=== PATIENT | male | born 1950 | race Caucasian/White ===

== ENCOUNTER → 2019-05-21 | Outpatient (CLI) | payer OTHER ==
[2019-05-21 13:46] LABS: African American GFR (CKD) >90 (>60 ml/min/1.73 sqM); Blood Urea Nitrogen 8 mg/dL (9-20)
--- NOTE | 2019-05-21 14:28 | CT ---
EXAMINATION TYPE: CT angio abdomen pelvis DATE OF EXAM: 05/21/2019 COMPARISON: None HISTORY: AAA CT DLP: 271.9 mGycm CONTRAST: CTA abdominal aorta with 3-D reconstruction is performed without Oral Contrast and with IV Contrast, patient injected with 100 mL of Isovue 370. Contrast CTA of the abdominal aorta was performed from the lung base through the base of the pelvis. 3-D reconstruction imaging obtained at a separate workstation. CONTRAST CT ABDOMEN AND PELVIS ABDOMINAL AORTA: Infrarenal aortic aneurysm measuring up to 4.5 cm AP dimension. Mild mural thrombus. Neck measures 3.3 cm in length. No dissection. Iliac vessels are symmetric and patent. The lung bases: Small bilateral pleural effusions. Basilar parenchymal scarring and emphysematous change. LIVER/GB- No significant abnormality is seen. PANCREAS- No significant abnormality is seen. SPLEEN- No significant abnormality is seen. ADRENALS- No significant abnormality is seen. KIDNEYS/BLADDER- No significant abnormality is seen. BOWEL- No Significant abnormality GENITAL ORGANS: No gross abnormality seen. LYMPH NODES- No greater than 1cm abdominal or pelvic lymph nodes are appreciated. OSSEOUS STRUCTURES- No significant abnormality is seen. OTHER- No significant abnormality is seen. IMPRESSION- 1. Infrarenal abdominal aortic aneurysm.
== END | disposition home or self-care (01) ==
LOC: RADCTMAIN 13:07
DX: I71.4 Abdominal aortic aneurysm, without rupture (principal)
CPT/HCPCS: 82565; 84520; 36415; 74174; Q9967

== ENCOUNTER → 2020-05-02 | Outpatient (CLI) | payer OTHER ==
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
== END | disposition home or self-care (01) ==
LOC: SLEEP 14:40
PROVIDERS: ATTEND Internal Medicine Critical Care Medicine
DX: G47.10 Hypersomnia, unspecified (principal); H91.90 Unspecified hearing loss, unspecified ear; J44.9 Chronic obstructive pulmonary disease, unspecified; N40.0 Benign prostatic hyperplasia without lower urinary tract symptoms; C44.90 Unspecified malignant neoplasm of skin, unspecified; G62.9 Polyneuropathy, unspecified; Z98.890 Other specified postprocedural states; F17.210 Nicotine dependence, cigarettes, uncomplicated; Z79.899 Other long term (current) drug therapy; Z79.891 Long term (current) use of opiate analgesic
CPT/HCPCS: 99211

== ENCOUNTER → 2021-04-03 | Outpatient (CLI) | payer OTHER ==
--- NOTE | 2021-04-03 14:19 | CT ---
EXAMINATION TYPE: CT brain wo con DATE OF EXAM: 04/03/2021 COMPARISON: None HISTORY: Headaches CT DLP: 1081.60 mGycm Automated exposure control for dose reduction was used. FINDINGS: Ventricular system is midline. There is no evidence of mass effect or midline shift. Intraorbital str uctures are symmetric. Cerebellar tonsils low-lying at the level of foramen magnum. Partially empty s bruno turcica. IMPRESSION: NO EVIDENCE OF ACUTE HEMORRHAGE OR MASS EFFECT. IF SYMPTOMS PERSIST CONSIDER MRI.
--- NOTE | 2021-04-03 14:19 | CT ---
EXAMINATION TYPE: CT chest wo con DATE OF EXAM: 04/03/2021 COMPARISON: None HISTORY: 71-year-old male COPD TECHNIQUE: Contiguous axial scanning of the chest without IV contrast. Coronal and sagittal reconstru ctions performed. CT DLP: 317.50 mGycm Automated exposure control for dose reduction was used. FINDINGS: Heart normal size with small pericardial effusion near the apex of the heart measuring up to 8 mm. LA D and RCA coronary artery calcifications. Mitral annular calcifications also noted. Mild to moderate atherosclerotic arch and descending thoracic aortic calcifications. Bovine configura tion to the aortic arch. Borderline to mildly enlarged caliber to the main right and left pulmonary arteries measuring up to 2 .6 cm suggesting underlying pulmonary artery hypertension. Calcified right hilar lymph nodes compatible with prior granulomatous disease. No thoracic lymphadeno mikki by CT size criteria. Moderate to advanced centrilobular. Right apical pleural-parenchymal scarring. Some irregular nodular areas are present here measuring up to 7 mm, axial image 11 and can be reassessed at follow-up. A fe w calcified granulomas are present on the right, axial image 19 and 49. Irregular opacity at the basilar right lower lobe extends to the basilar and posterior pleural surfac e and shows a trace right effusion, referred to axial image 57 and 58. The architecture is distorted here. Focal subpleural masslike density within the inferior lingula measuring 2.6 cm. Mild smooth pleural b ased thickening periphery of the basilar left lower lobe measuring up to 9 mm, axial image 48. Otherwise, no consolidation or pleural effusion. Partially visualized infrarenal AAA measuring at least 4.1 cm. Atrophic pancreas. Bones: [facility] within the mid and lower thoracic spine. Degenerative changes at the sternoclavicular amilcar nts. Moderate to advanced degenerative disc disease L2-L3 with grade 1 retrolisthesis. IMPRESSION: 1. 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 2. BIBASILAR PLEURAL PARENCHYMAL SCARRING. MORE IRREGULAR PATCHY CHANGES AT THE BASILAR RIGHT LOWER L OBE EXTENDING TO THE BASILAR AND POSTERIOR PLEURAL SURFACES ALONG WITH A TRACE RIGHT EFFUSION. [address] FOLLOW-UP CT RECOMMENDED TO REASSESS. 3. THREE-MONTH FOLLOW-UP CT ALSO RECOMMENDED TO REASSESS A SUBPLEURAL MASSLIKE AREA WITHIN THE INFERI OR LINGULA AND SOME ADJACENT SMOOTH PLEURAL THICKENING IN THE PERIPHERY OF THE LEFT BASE. THESE AREAS MEASURE UP TO 2.6 CM AND 9 MM, RESPECTIVELY. 7 MM IRREGULAR NODULARITY AT THE RIGHT APEX, PROBABLE P LEURAL-PARENCHYMAL SCARRING, SHOULD ALSO BE REASSESSED AT THAT TIME. 4. CAD WITH LAD AND RCA CORONARY ARTERY CALCIFICATIONS. 5. PARTIALLY VISUALIZED AAA. WE NOTE THAT THIS MEASURED UP TO 4.7 CM ON THE PRIOR 05/21/2019 CT. APPRO SANDRITAATE VASCULAR FOLLOW-UP RECOMMENDED.
== END | disposition home or self-care (01) ==
LOC: RADCTMAIN 12:37
PROVIDERS: ATTEND Physician Assistant
DX: J43.9 Emphysema, unspecified (principal); I27.21 Secondary pulmonary arterial hypertension; I25.10 Atherosclerotic heart disease of native coronary artery without angina pectoris; J98.4 Other disorders of lung; J92.9 Pleural plaque without asbestos; R51.9 Headache, unspecified
CPT/HCPCS: 70450; 71250

== ENCOUNTER → 2022-06-07 | Outpatient (CLI) | payer OTHER ==
[2022-06-07 14:26] LABS: African American GFR (CKD) >90 (>60 ml/min/1.73 sqM); Blood Urea Nitrogen 13 mg/dL (9-20); Non-African American GFR(CKD) 89 (>60 ml/min/1.73 sqM)
--- NOTE | 2022-06-07 19:06 | CT ---
EXAMINATION TYPE: CT angio abdomen pelvis DATE OF EXAM: 06/07/2022 COMPARISON: 05/21/2019 HISTORY: AAA CT DLP: 1864 mGycm Automated exposure control for dose reduction was used. Contrast: 03/21/2019 Technique: Axial images 5 mm thick sections. Reconstructed images in the coronal and sagittal plane. Three-D reconstructed images performed on a separate computer by the technologists are presented for interpretation. FINDINGS: Limited CT sections are obtained through the lung bases. There is a 1.2 cm nodule in the posterior ri ght lung base. Infiltrate appears to be in the posterior inferior right lung base. Vascular calcifications within the aorta. Celiac axis and superior mesenteric artery takeoffs are nor mal. The renal artery takeoffs have vascular calcification. Stenosis is not identified. There is new per renal abdominal aorta aneurysm. Greatest AP diameter is 5.4 cm. This terminates the bifurcation. Common iliac arteries internal and external iliac arteries are patent. Common femoral ar teries are patent. Vascular calcification is noted. Profunda femoris and superficial femoral arteries within the field of view are normal. Urinary bladder is normal. Prostate is normal. Fecal debris is in the colon. The appendix is not iden tified. No dilated tubular structure or inflammatory changes evident. Gallbladder is unremarkable. Li constance and spleen are normal density without discrete masses or cysts. Pancreas is atrophic. Adrenal gla nds are normal. IMPRESSION: 1. ABDOMINAL AORTIC ANEURYSM BELOW THE RENAL ARTERIES TERMINATING AT THE BIFURCATION WITH AN AP DIAME TER OF 5.4 CM.. THIS IS INCREASED IN SIZE FROM 4.5 CM 2019.
== END | disposition home or self-care (01) ==
LOC: RADCTMAIN 13:52
PROVIDERS: ATTEND Surgery
DX: I71.4 Abdominal aortic aneurysm, without rupture (principal)
CPT/HCPCS: 82565; 84520; 36415; 74174; Q9967

== ENCOUNTER 2022-09-02 09:18 | Emergency (ER) | payer OTHER ==
[2022-09-02 09:28] VITALS: TEMP 97
[2022-09-02] MEDS ORDERED: SODIUM CHLORIDE 0.9% 500 ML 500 ML IV STA (09:40)
--- NOTE | 2022-09-02 09:45 | ED ---
Nausea/Vomiting/Diarrhea HPI - General Chief complaint: Nausea/Vomiting/Diarrhea Stated complaint: Diarrhea Time Seen by Provider: 09/02/22 09:29 Source: patient, RN notes reviewed, old records reviewed Mode of arrival: ambulatory Limitations: no limitations - History of Present Illness Initial comments: 72-year-old male presents ambulatory, alert and oriented 4, with complaints of diarrhea for 16 days. States he is down to 3 episodes a day, watery in nature. Denies any bleeding. States he did take 4 Imodium today. He was diagnosed with coronavirus and influenza at [facility] 2 weeks ago and just finished Keflex. He also has a history of colitis and states he is not sure if this is his colitis acting up. Denies any vomiting or fevers. No chest pain or difficulty in breathing. Patient does have a history of CHF, COPD and abdominal aortic aneurysm. He is scheduled to see Dr. Briggs on September 04 for reevaluation of aneurysm. MD complaint: diarrhea, abdominal pain -: days(s) (16) Description of Diarrhea: water Associated Abdominal Pain: Yes Location: diffuse Radiation: none Severity: mild Severity scale (1-10): 3 Quality: cramping Consistency: intermittent Context: recent antibiotic use (keflex) Associated Symptoms: denies other symptoms - Related Data Allergies Allergy/AdvReac Type Severity Reaction Status Date / Time milk Allergy Nausea & Verified 09/02/22 09:25 Vomiting & Diarrhea Review of Systems ROS Statement: Those systems with pertinent positive or pertinent negative responses have been documented in the HPI. ROS Other: All systems not noted in ROS Statement are negative. Past Medical History Past Medical History: Heart Failure History of Any Multi-Drug Resistant Organisms: None Reported Past Surgical History: Orthopedic Surgery Additional Past Surgical History / Comment(s): Spinal surgery Past Psychological History: No Psychological Hx Reported Smoking Status: Former smoker Past Alcohol Use History: Occasional Past Drug Use History: None Reported General Exam Limitations: no limitations General appearance: alert, in no apparent distress Head exam: Present: atraumatic Eye exam: Absent: scleral icterus, conjunctival injection, periorbital swelling ENT exam: Present: other (Bilateral hearing aids) Neck exam: Absent: meningismus Respiratory exam: Absent: respiratory distress, accessory muscle use Cardiovascular Exam: Present: regular rate GI/Abdominal exam: Present: soft. Absent: distended, tenderness, guarding, rigid Neurological exam: Present: alert, oriented X3, normal gait Psychiatric exam: Present: normal affect, normal mood Skin exam: Present: warm, dry. Absent: cyanosis, diaphoretic Course Vital Signs 09/02/22 09/02/22 09/02/22 09:25 12:27 13:47 Temperature 97 F L Pulse Rate 84 82 81 Respiratory 16 16 18 Rate Blood Pressure 123/81 124/81 122/84 O2 Sat by Pulse 97 96 96 Oximetry Medical Decision Making - Medical Decision Making Patient presents with diarrhea for 16 days. States he is down to 3 episodes a day, watery in nature. Denies any bleeding. He had was diagnosed with coronavirus and influenza 2 weeks ago and just finished Keflex. He also has a history of colitis. Patient has had no diarrhea in the emergency room. Abdomen is soft and nontender. Patient is afebrile, no vomiting or abdominal pain. No evidence of leukocytosis. Electrolytes are unremarkable. Urine is clear. He is tolerating oral fluids in the emergency room. He was given IV fluids for hydration. Vital signs are stable. He was directed to follow up with his primary care doctor for continuation of care. Return to the emergency room with any new or concerning symptoms. He is agreeable to this plan of care. Case discussed with Dr. Cruz. - Lab Data Result diagrams: 09/02/22 09:55 09/02/22 09:55 Lab Results 09/02/22 09/02/22 09/02/22 Range/Units 09:55 09:55 09:56 WBC 6.3 (3.8-10.6) k/uL RBC 3.49 L (4.30-5.90) m/uL Hgb 12.2 L (13.0-17.5) gm/dL Hct 35.3 L (39.0-53.0) % MCV 101.0 H (80.0-100.0) fL MCH 34.8 (25.0-35.0) pg MCHC 34.5 (31.0-37.0) g/dL RDW 12.9 (11.5-15.5) % Plt Count 395 (150-450) k/uL MPV 7.3 Neutrophils % 62 % Lymphocytes % 24 % Monocytes % 7 % Eosinophils % 2 % Basophils % 1 % Neutrophils # 3.9 (1.3-7.7) k/uL Lymphocytes # 1.6 (1.0-4.8) k/uL Monocytes # 0.5 (0-1.0) k/uL Eosinophils # 0.1 (0-0.7) k/uL Basophils # 0.0 (0-0.2) k/uL Sodium 131 L (137-145) mmol/L Potassium 4.9 (3.5-5.1) mmol/L Chloride 99 (98-107) mmol/L Carbon Dioxide 28 (22-30) mmol/L Anion Gap 4 mmol/L BUN 10 (9-20) mg/dL Creatinine 0.65 L (0.66-1.25) mg/dL Est GFR (CKD-EPI)AfAm >90 (>60 ml/min/1.73 sqM) Est GFR (CKD-EPI)NonAf >90 (>60 ml/min/1.73 sqM) Glucose 98 (74-99) mg/dL Calcium 8.5 (8.4-10.2) mg/dL Total Bilirubin 0.8 (0.2-1.3) mg/dL AST 34 (17-59) U/L ALT 18 (4-49) U/L Alkaline Phosphatase 117 (38-126) U/L Total Protein 6.1 L (6.3-8.2) g/dL Albumin 3.5 (3.5-5.0) g/dL Amylase 37 (30-110) U/L Lipase <10 L (23-300) U/L Urine Color Light Yellow Urine Appearance Clear (Clear) Urine pH 6.0 (5.0-8.0) Ur Specific [place] 1.007 (1.001-1.035) Urine Protein Negative (Negative) Urine Glucose (UA) Negative (Negative) Urine Ketones Negative (Negative) Urine Blood Negative (Negative) Urine Nitrite Negative (Negative) Urine Bilirubin Negative (Negative) Urine Urobilinogen <2.0 (<2.0) mg/dL Ur Leukocyte Esterase Negative (Negative) Disposition Clinical Impression: Diarrhea Disposition: HOME SELF-CARE Condition: Good Instructions (If sedation given, give patient instructions): Acute Diarrhea (ED) Additional Instructions: Follow-up with your primary care doctor this week. Return to the emergency room with any new or concerning symptoms including persistent nausea vomiting, fevers, weakness, or dizziness. Is patient prescribed a controlled substance at d/c from ED?: No Referrals: [facility],Clinic [Primary Care Provider] - 1-2 days Time of Disposition: 12:18
[2022-09-02 10:13] LABS: Basophils % (A) 1 %; Eosinophils # (A) 0.1 k/uL (0-0.7); Eosinophils % (A) 2 %; HCT 35.3 % (39.0-53.0); HGB 12.2 gm/dL (13.0-17.5); Lymphocytes # (A) 1.6 k/uL (1.0-4.8); Lymphocytes % (A) 24 %; MCH 34.8 pg (25.0-35.0); MCHC 34.5 g/dL (31.0-37.0); Mean Platelet Volume 7.3; Monocytes # (A) 0.5 k/uL (0-1.0); Monocytes % (A) 7 %; Neutrophils # (A) 3.9 k/uL (1.3-7.7); Neutrophils % (A) 62 %; Platelet Count 395 k/uL (150-450); RBC 3.49 m/uL (4.30-5.90); RDW 12.9 % (11.5-15.5); WBC 6.3 k/uL (3.8-10.6)
[2022-09-02 10:21] LABS: Appearance,Urine Clear (Clear); Bilirubin,Urine Negative (Negative); Blood,Urine Negative (Negative); Color,Urine Light Yellow; Glucose,Urine (UA) Negative (Negative); Ketones,Urine Negative (Negative); Leukocyte Esterase,Urine Negative (Negative); Nitrite,Urine Negative (Negative); Protein,Urine Negative (Negative); Specific Gravity,Urine 1.007 (1.001-1.035); Urobilinogen,Urine <2.0 mg/dL (<2.0)
[2022-09-02 10:25] LABS: ALT 18 U/L (4-49); African American GFR (CKD) >90 (>60 ml/min/1.73 sqM); Amylase 37 U/L (30-110); Anion Gap 4 mmol/L; Blood Urea Nitrogen 10 mg/dL (9-20); Calcium 8.5 mg/dL (8.4-10.2); Carbon Dioxide 28 mmol/L (22-30); Chloride 99 mmol/L (98-107); Glucose 98 mg/dL (74-99); Lipase <10 U/L (23-300); Non-African American GFR(CKD) >90 (>60 ml/min/1.73 sqM); Sodium 131 mmol/L (137-145); Total Bilirubin 0.8 mg/dL (0.2-1.3)
[2022-09-02 10:27] LABS: AST 34 U/L (17-59); Albumin 3.5 g/dL (3.5-5.0); Alkaline Phosphatase 117 U/L (38-126); Potassium 4.9 mmol/L (3.5-5.1); Total Protein 6.1 g/dL (6.3-8.2)
[2022-09-02 13:49] VITALS: BP 122/84; PULSE 81; RESP 18
== END 2022-09-02 13:48 | disposition home or self-care (01) ==
LOC: EC 09:18
DX: I50.9 Heart failure, unspecified (principal); Z87.891 Personal history of nicotine dependence; Z91.011 Allergy to milk products
CPT/HCPCS: 36415; 80053; 81003; 82150; 83690; 85025; 96360; 96361; 99284

== ENCOUNTER → 2022-09-24 | Outpatient (CLI) | payer OTHER | END | disposition home or self-care (01) | LOC: LABWHC1 11:56 | PROVIDERS: ATTEND Internal Medicine Interventional Cardiology | DX: R79.89 Other specified abnormal findings of blood chemistry (principal) | CPT/HCPCS: 36415; 83880 ==

== ENCOUNTER 2022-11-01 06:45 | Inpatient (IN) | payer OTHER ==
[2022-10-30 13:05] VITALS: BMI 21.4
[~2022-11-01 06:45] MED LIST: ALPRAZolam 0.25 MG TAB PO PRN; ALPRAZolam 0.5 MG TAB PO PRN; SODIUM CHLORIDE 0.9% 1,000 ML in EMPTY BAG 1 BAG IV ONE; ZOLPIDEM 5 MG TAB PO PRN; ceFAZolin 1 GM in SODIUM CHLORIDE 0.9% 250 ML IRRIGATION PRN
[2022-11-01] MEDS ORDERED: SODIUM CHLORIDE 0.9% 1,000 ML IV ONE ×2 (07:07→11:45)
[2022-11-01 07:50] LABS: Basophils # (A) 0.1 k/uL (0-0.2); Basophils % (A) 1 %; Eosinophils # (A) 0.1 k/uL (0-0.7); Eosinophils % (A) 1 %; Lymphocytes # (A) 2.2 k/uL (1.0-4.8); Lymphocytes % (A) 30 %; MCH 33.9 pg (25.0-35.0); MCHC 34.1 g/dL (31.0-37.0); MCV 99.6 fL (80.0-100.0); Mean Platelet Volume 7.4; Monocytes # (A) 0.4 k/uL (0-1.0); Monocytes % (A) 6 %; Neutrophils # (A) 4.5 k/uL (1.3-7.7); Neutrophils % (A) 60 %; Platelet Count 221 k/uL (150-450); RBC 3.82 m/uL (4.30-5.90); WBC 7.5 k/uL (3.8-10.6)
[2022-11-01 08:02] LABS: African American GFR (CKD) >90 (>60 ml/min/1.73 sqM); Anion Gap 6 mmol/L; Blood Urea Nitrogen 15 mg/dL (9-20); Calcium 8.9 mg/dL (8.4-10.2); Carbon Dioxide 32 mmol/L (22-30); Chloride 96 mmol/L (98-107); Glucose 103 mg/dL (74-99); Non-African American GFR(CKD) 89 (>60 ml/min/1.73 sqM); Sodium 134 mmol/L (137-145)
[2022-11-01 08:03] LABS: Potassium 3.4 mmol/L (3.5-5.1)
--- NOTE | 2022-11-01 08:50 | P.HPIHPCON ---
History of Present Illness H&P Date: 11/01/22 Patient seen and examined. He is here today for surgical intervention regarding his abdominal aortic aneurysm. He has had proper clearances regarding his pulmonary status which was the reason why his previous aneurysm repair had been canceled. He is doing well without any questions Consent for Procedure: I have explained the operation/procedure to the patient, including the risks, benefits, side effects, alternative therapies (including not receiving the pr oposed treatment or service), the likelihood of the patient achieving his/her goals, and potential recuperation problems for the procedure/sedation/analgesia, as well as any blood products, if indicated. I also explained to the patient the risks, benefits and side effects of the alternatives, as well as the risks related to not receiving the proposed procedure, care, treatment, or services. Past Medical History Past Medical History: Cancer, COPD, Hyperlipidemia, Hypertension, Sleep Apnea/CPAP/BIPAP Additional Past Medical History / Comment(s): sleep apnea-no machine, skin cancer., hx covid 07/2022 with pneumonia & hospitalization., chronic back pain., AAA. 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 - Past Family History Mother Family Medical History: No Reported History Medications and Allergies Home Medications Medication Instructions Recorded Confirmed Type Albuterol Inhaler [Ventolin Hfa 1 - 2 puff INHALATION Q6H PRN 10/30/22 11/01/22 History Inhaler] Calcium Carbonate [Calcium] 1,200 mg PO DAILY 10/30/22 11/01/22 History Ensure 1 can PO TID-W/MEALS 10/30/22 11/01/22 History Fluticasone Propion/Salmeterol 1 inhalation PO BID 10/30/22 11/01/22 History [Wixela 250-50 Inhub] Hydrocodone/Acetaminophen 1 tab PO Q4HR PRN 10/30/22 11/01/22 History [Hydrocodone/Acetaminophen 10-325] Lactobacillus Acidophilus 2 each PO PC-SUPPER 10/30/22 11/01/22 History [Acidophilus Probiotic] Mesalamine 1.2 gm PO DAILY 10/30/22 11/01/22 History Metoprolol Tartrate [Lopressor] 25 mg PO BID 10/30/22 11/01/22 History Oxybutynin Chloride 5 mg PO BID 10/30/22 11/01/22 History Pregabalin [Lyrica] 50 mg PO BID 10/30/22 11/01/22 History Terazosin HCl [Hytrin] 10 mg PO HS 10/30/22 11/01/22 History Tiotropium 2.5 Mcg/Puff [Spiriva 2 puff INHALATION DAILY 10/30/22 11/01/22 History Respimat 2.5 Mcg] Zinc Gluconate [Zinc] 50 mg PO DAILY 10/30/22 11/01/22 History Allergies Allergy/AdvReac Type Severity Reaction Status Date / Time gabapentin Allergy Unknown Unknown Verified 11/01/22 07:12 lactose Allergy Unknown Nausea & Verified 11/01/22 07:12 Vomiting & Diarrhea milk Allergy Nausea & Verified 11/01/22 07:12 Vomiting & Diarrhea morphine AdvReac Hx of Verified 11/01/22 07:12 addiction Surgical - Exam Vital Signs Temp Pulse Resp BP Pulse Ox 98.2 F 72 16 156/78 96 11/01/22 07:21 11/01/22 07:21 11/01/22 07:21 11/01/22 07:21 11/01/22 07:21 Gen. is a pleasant cooperative male in no acute distress. Heart appears regular at this time. Lungs are clear but diminished. Abdomen soft. He has palpable femoral popliteal dorsalis pedis pulses bilaterally. Motor sensory intact. Cranial nerves II through XII grossly intact. Results Computed tomography scan again reviewed. 5.4 cm infrarenal abdominal aortic aneurysm - Labs 11/01/22 07:05 11/01/22 07:05 Abnormal Lab Results - Last 24 Hours (Table) 11/01/22 11/01/22 Range/Units 07:05 07:05 RBC 3.82 L (4.30-5.90) m/uL Hct 38.0 L (39.0-53.0) % Sodium 134 L (137-145) mmol/L Potassium 3.4 L (3.5-5.1) mmol/L Chloride 96 L (98-107) mmol/L Carbon Dioxide 32 H (22-30) mmol/L Glucose 103 H (74-99) mg/dL Diabetes panel 11/01/22 Range/Units 07:05 Sodium 134 L (137-145) mmol/L Potassium 3.4 L (3.5-5.1) mmol/L Chloride 96 L (98-107) mmol/L Carbon Dioxide 32 H (22-30) mmol/L BUN 15 (9-20) mg/dL Creatinine 0.78 (0.66-1.25) mg/dL Glucose 103 H (74-99) mg/dL Calcium 8.9 (8.4-10.2) mg/dL Calcium panel 11/01/22 Range/Units 07:05 Calcium 8.9 (8.4-10.2) mg/dL Pituitary panel 11/01/22 Range/Units 07:05 Sodium 134 L (137-145) mmol/L Potassium 3.4 L (3.5-5.1) mmol/L Chloride 96 L (98-107) mmol/L Carbon Dioxide 32 H (22-30) mmol/L BUN 15 (9-20) mg/dL Creatinine 0.78 (0.66-1.25) mg/dL Glucose 103 H (74-99) mg/dL Calcium 8.9 (8.4-10.2) mg/dL Adrenal panel 11/01/22 Range/Units 07:05 Sodium 134 L (137-145) mmol/L Potassium 3.4 L (3.5-5.1) mmol/L Chloride 96 L (98-107) mmol/L Carbon Dioxide 32 H (22-30) mmol/L BUN 15 (9-20) mg/dL Creatinine 0.78 (0.66-1.25) mg/dL Glucose 103 H (74-99) mg/dL Calcium 8.9 (8.4-10.2) mg/dL Assessment and Plan Assessment: Infrarenal abdominal aortic aneurysm COPD Tobacco abuse Hypertension Plan: Plan for abdominal aortic aneurysm repair via endovascular approach. Risks and benefits were discussed. He seemingly understood and was willing to proceed. Questions are answered.
[2022-11-01] MEDS ORDERED: PHENYLEPHRINE-0.9% NACL SYG 1,000 MCG/10 ML SYRINGE ONE (09:09)
[2022-11-01] MEDS ORDERED: NEOSTIGMINE 1 MG/ML 10 ML VIAL ONE (09:09)
[2022-11-01] MEDS ORDERED: LIDOCAINE 2% INJ 20 MG/ML (2 ML VIAL) ONE (09:09)
[2022-11-01] MEDS ORDERED: SUCCINYLCHOLINE CHLORIDE 200 MG/10 ML VIAL IV ONE (09:09)
[2022-11-01] MEDS ORDERED: GLYCOPYRROLATE 0.2 MG/ML 2 ML VIAL ONE (09:09)
[2022-11-01] MEDS ORDERED: fentaNYL (PF) 50 MCG/ML 2 ML AMP ONE (09:09)
[2022-11-01] MEDS ORDERED: NITROGLYCERIN-D5W PMX 50 MG/250 ML BOTTLE IV ONE (09:09)
[2022-11-01] MEDS ORDERED: PROPOFOL 10 MG/ML 20 ML VIAL IV ONE (09:09)
[2022-11-01] MEDS ORDERED: HYDROmorphone (PF) 1 MG/ML ONE (09:09)
[2022-11-01] MEDS ORDERED: MIDAZOLAM 2 MG/2 ML VIAL ONE (09:09)
[2022-11-01] MEDS ORDERED: PROTAMINE SULFATE 10 MG/ML 5 ML VIAL IV ONE (09:09)
[2022-11-01] MEDS ORDERED: HEPARIN SODIUM,PORCINE 10,000 UNIT/ML 1 ML VIAL ONE (09:09)
[2022-11-01] MEDS ORDERED: DEXAMETHASONE SOD PHOSPHATE 10 MG/ML 1 ML VIAL ONE (09:09)
[2022-11-01] MEDS ORDERED: ONDANSETRON 4 MG/2 ML VIAL ONE (09:09)
[2022-11-01] MEDS ORDERED: ROCURONIUM 10 MG/ML (5 ML VIAL) IV ONE (09:09)
[2022-11-01] MEDS ORDERED: IOPAMIDOL-250 100ML BTL INTRAARTER ONE (11:41)
--- NOTE | 2022-11-01 12:16 | P.OP ---
Date of Procedure: 11/01/22 Description of Procedure: Preoperative diagnosis: Asymptomatic Infrarenal 5.4 cm abdominal aortic aneurysm Postoperative diagnosis: Same Procedure: 1. Ultrasound-guided bilateral common femoral artery access 2. Percutaneous Endovascular aortic repair with [place] device. Surgeon: Anton Briggs DO Anesthesia: General Estimated blood loss: 40 mL Complications: None Condition: Stable Disposition: Extubated in OR, stable to recovery Fluoro Time: 21.9 minutes Contrast: 130cc Indications: The patient is a 72-year-old male with history of infrarenal AAA measuring 5.4 cm presents to the [facility] for endovascular aortic repair. Operative narrative: After written and informed consent was obtained from the patient all risks benefits and complications were described the patient was brought to the [facility] and laid in a supine position. The area of the groins were prepped and draped in usual sterile fashion after appropriate anesthetic was performed per the anesthesiologist. A timeout was performed in normal fashion and antibiotics were administered prior to incisions. Utilizing ultrasound bilateral common femoral arteries were visualized demonstrating patency with minimal calcification. Under ultrasound guidance utilizing a multipurpose needle bilateral common femoral arteries were accessed and guidewire was placed followed by deployment of 2 Perclose closure devices for each femoral artery. On the right, there were multiple device feel years however to Perclose devices were appropriately placed. Utilizing Seldinger technique and 8-Fijian sheath was then placed and patient was administered heparin and followed with ACTs. 035 Glidewire was then placed up the right femoral sheath and exchanged for a Lunderquist wire through an angled glide catheter. The left femoral artery was then utilized and guidewire was placed followed by pigtail catheter and aortogram was obtained. Utilizing the Lunderquist wire a 26 x 80 mm main body device was then loaded over the guidewire after the 8-Fijian sheath was removed. Delivery system was then placed 1 cm proximal to the intended landing site and the aortic body was oriented for appropriate access for the contralateral limb. Delivery system was then retracted out of the sheath and the aortic body radiopaque markers were verified to be in the correct position. First segment of the graft was then deployed in normal fashion by releasing and pulling the knob in normal fashion. Balloon injection port was then inflated utilizing a 4-1 saline contrast mixture in order to open the mid crown. Balloon was then deflated. Precise positioning was then performed with utilizing the radiopaque markers and parallax was removed and our to land at the renal arteries. Pigtail catheter was then retracted away from the proximal stent and the proximal stent was released in normal fashion. Polymer was then utilized and filled through the polymer port which was visualized under fluoroscopy. The stiff Lunderquist wire was then retracted within the ipsilateral limb. Attention was then placed to accessing the contralateral limb. Utilizing the Glidewire and angled glide catheter the contralateral limb was accessed and pigtail catheter was placed. Pigtail catheter was then spun to verify intragraft cannulation. A stiff wire was then placed within the pigtail catheter and retrograde angiogram was obtained demonstrating the internal iliac artery takeoff. Measurements were obtained and a 16 x 1 60 mm Ovation limb was chosen to be deployed and deployed in normal fashion. Once completed the aortic main body was completely deployed in normal fashion. Utilizing the balloon balloon angioplasty was performed at the ring to further mold the polymer to the aortic neck. Once completed the aortic body deployment sheath was removed in normal fashion. Pigtail catheter was then placed over the Lunderquist wire and retrograde angiogram was obtained with measurements to the internal iliac artery on the ipsilateral limb. A 14 x 1 60mm Ovation limb was chosen and deployed in normal fashion. Once completed two 12 x 40mm balloons were placed up each iliac limb and balloon angioplasty was performed through its entirety. Once completed balloons were removed and pigtail catheter was placed above the graft and final angiogram was obtained demonstrating exclusion of the aneurysm with no evidence of endoleak's. All guidewires and catheters were then removed and the Perclose closure devices were closed in normal fashion. There was some oozing from the left femoral so attempts were initially made to place an Angio-Seal. A 6-Fijian sheath was placed for sizing and in doing so removing the sheath, the wire access was lost therefore manual pressure was held until hemostasis was adequate. The areas were then cleansed and dressings were placed. The patient tolerated procedure well and had palpable DP pulses and was sent to PACU for recovery.
[2022-11-01] MEDS ORDERED: NALOXONE 0.4 MG/ML 10 ML VIAL IVP PRN (12:17)
[2022-11-01] MEDS ORDERED: NITROGLYCERIN-D5W PMX 50 MG in DEXTROSE/WATER 1 250ML.BAG IV ONE (12:20)
--- NOTE | 2022-11-01 12:42 | IR ---
EXAMINATION TYPE: IR stent intravas non coronary DATE OF EXAM: 11/01/2022 COMPARISON: NONE HISTORY: Fluoroscopy time. Fluoroscopy was provided to the referring clinician.
[2022-11-01] MEDS ORDERED: MEPERIDINE 50 MG/ML SYRINGE IVP ONE ×2 (12:57→13:57)
[2022-11-01] MEDS ORDERED: CYCLOBENZAPRINE 5 MG TAB PO STA (12:57)
[2022-11-01] MEDS ORDERED: HYDROmorphone 0.5 MG/0.5 ML SYRINGE IVP ONE ×2 (14:00→15:37)
[2022-11-01 14:08] LABS: Basophils % (A) 0 %; Eosinophils % (A) 0 %; HCT 33.8 % (39.0-53.0); HGB 11.4 gm/dL (13.0-17.5); Lymphocytes # (A) 0.7 k/uL (1.0-4.8); Lymphocytes % (A) 9 %; MCH 33.8 pg (25.0-35.0); MCHC 33.8 g/dL (31.0-37.0); MCV 99.9 fL (80.0-100.0); Mean Platelet Volume 7.8; Monocytes # (A) 0.2 k/uL (0-1.0); Monocytes % (A) 2 %; Neutrophils # (A) 6.9 k/uL (1.3-7.7); Neutrophils % (A) 88 %; Platelet Count 211 k/uL (150-450); RBC 3.38 m/uL (4.30-5.90); RDW 13.5 % (11.5-15.5); WBC 7.8 k/uL (3.8-10.6)
[2022-11-01 14:24] LABS: African American GFR (CKD) >90 (>60 ml/min/1.73 sqM); Anion Gap 4 mmol/L; Blood Urea Nitrogen 13 mg/dL (9-20); Carbon Dioxide 26 mmol/L (22-30); Chloride 103 mmol/L (98-107); Glucose 124 mg/dL (74-99); Non-African American GFR(CKD) >90 (>60 ml/min/1.73 sqM); Potassium 3.8 mmol/L (3.5-5.1); Sodium 133 mmol/L (137-145)
[2022-11-01] MEDS ORDERED: HYDROcodone/APAP 10-325MG 1 EACH TAB PO PRN (20:17)
[2022-11-01] MEDS: OXYBUTYNIN CHLORIDE 5 MG TAB PO SCH (20:59)
[2022-11-01] MEDS: PREGABALIN 50 MG CAP PO SCH (20:59)
[2022-11-01] MEDS: METOPROLOL TARTRATE 25 MG TAB PO SCH (20:59)
[2022-11-01] MEDS ORDERED: DOXAZOSIN 4 MG TAB PO SCH (21:00)
[2022-11-02] MEDS ORDERED: TIOTROPIUM 2.5 MCG INHALER INHALATION SCH (08:00)
[2022-11-02] MEDS ORDERED: SYMBICORT 80-4.5 MCG INHALER INHALATION SCH (08:00)
[2022-11-02] MEDS ORDERED: CALCIUM CARBONATE 500 MG CHEWABLE PO SCH (09:00)
[2022-11-02] MEDS ORDERED: ZINC SULFATE 220 MG CAP PO SCH (09:00)
[2022-11-02] MEDS ORDERED: BALSALAZIDE DISODIUM 750 MG CAPSULE PO SCH (09:00)
[2022-11-02 09:02] VITALS: BP 126/64; PULSE 77; RESP 16; TEMP 97.4
[2022-11-02] MEDS: OXYBUTYNIN CHLORIDE 5 MG TAB PO SCH (09:03)
[2022-11-02] MEDS: METOPROLOL TARTRATE 25 MG TAB PO SCH (09:03)
[2022-11-02] MEDS: PREGABALIN 50 MG CAP PO SCH (09:03)
--- NOTE | 2022-11-02 09:27 | P.PN ---
Subjective Progress Note Date: 11/02/22 Principal diagnosis: Abdominal aortic aneurysm. Postop day #1, status post stent graft repair Patient indicates the pain is minimal. Briggs was removed earlier today and has yet to void. He has been ambulatory in his room without issue. Objective - Vital Signs Vital signs: Vital Signs Temp 97.4 F L 11/02/22 09:02 Pulse 77 11/02/22 09:02 Resp 16 11/02/22 09:02 BP 126/64 11/02/22 09:02 Pulse Ox 95 11/02/22 09:02 FiO2 Intake & Output 11/01/22 11/02/22 11/02/22 18:59 06:59 18:59 Intake Total 1300 10 118 Output Total 200 300 Balance 1100 -290 118 Weight 76.7 kg Intake: IV 1300 10 0.9 10 Oral 118 Output: Urine 200 300 Other: Voiding Method Indwelling Catheter - Exam Surgical wounds are unremarkable. Legs are free of edema. Palpable dorsalis pedis pulses are intact bilaterally. Toes are freely movable and nontender. - Labs CBC & Chem 7: 11/01/22 13:50 11/01/22 13:50 Labs: Abnormal Lab Results - Last 24 Hours (Table) 11/01/22 11/01/22 Range/Units 13:50 13:50 RBC 3.38 L (4.30-5.90) m/uL Hgb 11.4 L (13.0-17.5) gm/dL Hct 33.8 L (39.0-53.0) % Lymphocytes # 0.7 L (1.0-4.8) k/uL Sodium 133 L (137-145) mmol/L Creatinine 0.64 L (0.66-1.25) mg/dL Glucose 124 H (74-99) mg/dL Calcium 8.0 L (8.4-10.2) mg/dL Assessment and Plan Assessment: #1: Status post stent graft repair infrarenal dimeric aneurysm. Surgically stable. Plan: Patient is stable for discharge. I reviewed with the patient instructions that he may shower over his wounds, there are no hematuria restrictions from a surgical standpoint. He was asked to continue his current medical regimen. There are no dietary restrictions. He was asked follow-up with Dr. Briggs in the office in one to 2 week timeframe. Al l questions were answered to patient's satisfaction. Time with Patient: Less than 30
--- NOTE | 2022-11-02 09:30 | P.DS ---
Providers Date of admission: 11/01/22 06:45 Expected date of discharge: 11/02/22 Attending physician: Lavonne Briggs DO Consults: 11/01/22 06:01 Consult to Anesthesia Routine Consulting Provider: Anesthesia,Services Consult Reason/Comments: General anesthesia for Aortic Stent procedure 11/01/22 12:17 Consult Physician Routine Consulting Provider: [facility] Consult Reason/Comments: med mgmnt htn, pulm, post EVAR Do you want consulting provider notified?: Yes 11/01/22 16:55 Consult Physician Routine Consulting Provider: Greg Alvarado Consult Reason/Comments: med mgmnt, pulm issues, post EVAR Do you want consulting provider notified?: Yes Primary care physician: [facility] Hospital Course: On the day of admission patient underwent stent graft repair of abdominal aortic aneurysm. No complications were noted. Assessment: Surgically stable. Procedures: Stent graft repair infrarenal abdominal aortic aneurysm via percutaneous approach. Patient Condition at Discharge: Good Plan - Discharge Summary Discharge Rx Participant: No New Discharge Prescriptions: No Action Metoprolol Tartrate [Lopressor] 25 mg PO BID Fluticasone Propion/Salmeterol [Wixela 250-50 Inhub] 1 inhalation PO BID Terazosin HCl [Hytrin] 10 mg PO HS Lactobacillus Acidophilus [Acidophilus Probiotic] 2 each PO PC-SUPPER Calcium Carbonate [Calcium] 1,200 mg PO DAILY Albuterol Inhaler [Ventolin Hfa Inhaler] 1 - 2 puff INHALATION Q6H PRN PRN Reason: Shortness Of Breath Oxybutynin Chloride 5 mg PO BID Tiotropium 2.5 Mcg/Puff [Spiriva Respimat 2.5 Mcg] 2 puff INHALATION DAILY Hydrocodone/Acetaminophen [Hydrocodone/Acetaminophen 10-325] 1 tab PO Q4HR PRN PRN Reason: Pain Pregabalin [Lyrica] 50 mg PO BID Mesalamine 1.2 gm PO DAILY Zinc Gluconate [Zinc] 50 mg PO DAILY Ensure 1 can PO TID-W/MEALS Discharge Medication List Albuterol Inhaler [Ventolin Hfa Inhaler] 1 - 2 puff INHALATION Q6H PRN 10/30/22 [History] Calcium Carbonate [Calcium] 1,200 mg PO DAILY 10/30/22 [History] Ensure 1 can PO TID-W/MEALS 10/30/22 [History] Fluticasone Propion/Salmeterol [Wixela 250-50 Inhub] 1 inhalation PO BID 10/30/22 [History] Hydrocodone/Acetaminophen [Hydrocodone/Acetaminophen 10-325] 1 tab PO Q4HR PRN 10/30/22 [History] Lactobacillus Acidophilus [Acidophilus Probiotic] 2 each PO PC-SUPPER 10/30/22 [History] Mesalamine 1.2 gm PO DAILY 10/30/22 [History] Metoprolol Tartrate [Lopressor] 25 mg PO BID 10/30/22 [History] Oxybutynin Chloride 5 mg PO BID 10/30/22 [History] Pregabalin [Lyrica] 50 mg PO BID 10/30/22 [History] Terazosin HCl [Hytrin] 10 mg PO HS 10/30/22 [History] Tiotropium 2.5 Mcg/Puff [Spiriva Respimat 2.5 Mcg] 2 puff INHALATION DAILY 10/30/22 [History] Zinc Gluconate [Zinc] 50 mg PO DAILY 10/30/22 [History] Follow up Appointment(s)/Referral(s): Lavonne Briggs DO [STAFF PHYSICIAN] - 1 Week
[2022-11-02 11:49] LABS: African American GFR (CKD) >90 (>60 ml/min/1.73 sqM); Non-African American GFR(CKD) >90 (>60 ml/min/1.73 sqM)
--- NOTE | 2022-11-02 14:22 | P.CONS ---
History of Present Illness - Reason for Consult Consult date: 11/02/22 Medical management Requesting physician: Lavonne Briggs - Chief Complaint Endovascular repair - History of Present Illness This is a pleasant 72-year-old patient was chronic stable medical conditions include COPD, hypertension, hyperlipidemia, obstructive sleep apnea does not use BiPAP, chronic back pain. Patient underwent percutaneous endovascular aortic repair with outdoor device per Dr. Briggs. Yesterday. Outdoor pain. Feels well. Did tolerate her breakfast. Breathing stable. No chest pain. Has been out of bed. Did ambulate. Patient has a brace for the [facility] foot because of unstable Foot Review of systems: GEN.: None EYES: None HEENT: None NECK: None RESPIRATORY: Baseline some shortness of breath CARDIOVASCULAR: None GASTROINTESTINAL: None GENITOURINARY: None MUSCULOSKELETAL: Chronic joint pains LYMPHATICS: None HEMATOLOGICAL: None PSYCHIATRY: None NEUROLOGICAL: None Past medical history to include: COPD, hyperlipidemia, hypertension, obstructive sleep apnea does not use CPAP, skin cancer, COVID in July 2022, aortic aneurysm Social history: Patient stopped smoking 13 months ago. Smoked about a pack and a half a day for many years. No alcohol. 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 Lives alone. Physical examination: VITAL SIGNS: 97.4, 77, 16, 126/64, 95% room air GENERAL: BMI 22, reclining in bed, awake, comfortable EYES: Pupils equal. Conjunctiva normal. HEENT: External appearance of nose and ears normal, oral cavity grossly normal. NECK: JVD not raised; masses not palpable. HEART: First and second heart sounds are normal; no edema. LUNGS: Respiratory rate normal; increased breath sounds. ABDOMEN: Soft, nontender, liver spleen not palpable, no masses palpable. PSYCH: Alert and oriented x3; mood and affect normal. MUSCULOSKELETAL:No Clubbing/cyanosis;muscles-grossly intact. OA NEUROLOGICAL: Cranial nerves grossly intact; no facial asymmetry, power and sensation grossly intact. LYMPHATICS: No lymph nodes palpable in the axilla and neck INVESTIGATIONS, reviewed in the clinical context: White count 7.8 hemoglobin 11.4 platelets 211 potassium 3.8 creatinine 0.64 Assessment and plan: -Status post percutaneous endovascular aortic repair with outdoor device for asymptomatic infrarenal 5.4 cm abdominal aortic aneurysm Surgeon Dr. Janeth Briggs -COPD in a previous smoker Ventolin when necessary,Wixela inhaler, Spiriva -Essential hypertension Lopressor -Bladder outflow obstruction with incontinence Oxybutynin and Flomax -Peripheral neuropathy lyrica Home medications resumed. Discussed with the patient. Increase activity as tolerated. Patient to follow-up with family doctor hour discharge. Thank you Dr. Briggs Past Medical History Past Medical History: Cancer, COPD, Hyperlipidemia, Hypertension, Sleep Apnea/CPAP/BIPAP Additional Past Medical History / Comment(s): sleep apnea-no machine, skin cancer., hx covid 07/2022 with pneumonia & hospitalization., chronic back pain., AAA. 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 - Past Family History Mother Family Medical History: No Reported History Medications and Allergies Home Medications Medication Instructions Recorded Confirmed Type Albuterol Inhaler [Ventolin Hfa 1 - 2 puff INHALATION Q6H PRN 10/30/22 11/01/22 History Inhaler] Calcium Carbonate [Calcium] 1,200 mg PO DAILY 10/30/22 11/01/22 History Ensure 1 can PO TID-W/MEALS 10/30/22 11/01/22 History Fluticasone Propion/Salmeterol 1 inhalation PO BID 10/30/22 11/01/22 History [Wixela 250-50 Inhub] Hydrocodone/Acetaminophen 1 tab PO Q4HR PRN 10/30/22 11/01/22 History [Hydrocodone/Acetaminophen 10-325] Lactobacillus Acidophilus 2 each PO PC-SUPPER 10/30/22 11/01/22 History [Acidophilus Probiotic] Mesalamine 1.2 gm PO DAILY 10/30/22 11/01/22 History Metoprolol Tartrate [Lopressor] 25 mg PO BID 10/30/22 11/01/22 History Oxybutynin Chloride 5 mg PO BID 10/30/22 11/01/22 History Pregabalin [Lyrica] 50 mg PO BID 10/30/22 11/01/22 History Terazosin HCl [Hytrin] 10 mg PO HS 10/30/22 11/01/22 History Tiotropium 2.5 Mcg/Puff [Spiriva 2 puff INHALATION DAILY 10/30/22 11/01/22 History Respimat 2.5 Mcg] Zinc Gluconate [Zinc] 50 mg PO DAILY 10/30/22 11/01/22 History Allergies Allergy/AdvReac Type Severity Reaction Status Date / Time gabapentin Allergy Unknown Unknown Verified 11/01/22 07:12 lactose Allergy Unknown Nausea & Verified 11/01/22 07:12 Vomiting & Diarrhea milk Allergy Nausea & Verified 11/01/22 07:12 Vomiting & Diarrhea morphine AdvReac Hx of Verified 11/01/22 07:12 addiction Physical Exam Vitals: Vital Signs Temp Pulse Resp BP BP Pulse Ox 11/02/22 09:02 97.4 F L 77 16 126/64 95 11/02/22 04:00 97.6 F 71 18 120/63 98 11/02/22 02:00 65 18 11/01/22 23:42 98.0 F 65 18 124/62 98 11/01/22 20:00 97.9 F 65 18 108/57 98 11/01/22 16:00 66 17 156/90 99 11/01/22 15:46 58 L 17 159/91 181/84 99 11/01/22 15:29 59 L 17 148/86 99 11/01/22 15:12 61 17 145/83 166/68 99 11/01/22 14:56 62 16 168/72 99 11/01/22 14:40 65 16 143/79 167/70 99 11/01/22 14:25 62 16 151/80 169/69 99 11/01/22 14:10 62 16 174/72 135/79 99 11/01/22 13:55 59 L 16 177/74 154/82 98 11/01/22 13:40 63 17 120/74 155/61 98 11/01/22 13:22 63 17 129/78 156/68 96 11/01/22 13:05 63 17 129/78 136/65 91 L 11/01/22 12:50 63 16 140/71 163/63 93 L 11/01/22 12:35 64 16 145/69 151/70 99 11/01/22 12:20 97.5 F L 14 151/57 97 Intake and Output 11/01/22 11/02/22 11/02/22 22:59 06:59 14:59 Intake Total 10 118 Output Total 200 300 Balance -200 -290 118 Intake: IV 10 0.9 10 Oral 118 Output: Urine 200 300 Other: Voiding Method Indwelling Catheter Indwelling Catheter Indwelling Catheter Results CBC & Chem 7: 11/01/22 13:50 11/02/22 10:36 Labs: Abnormal Lab Results - Last 24 Hours (Table) 11/01/22 11/01/22 Range/Units 13:50 13:50 RBC 3.38 L (4.30-5.90) m/uL Hgb 11.4 L (13.0-17.5) gm/dL Hct 33.8 L (39.0-53.0) % Lymphocytes # 0.7 L (1.0-4.8) k/uL Sodium 133 L (137-145) mmol/L Creatinine 0.64 L (0.66-1.25) mg/dL Glucose 124 H (74-99) mg/dL Calcium 8.0 L (8.4-10.2) mg/dL
[2022-11-02] MEDS ORDERED: LACTOBACILLUS ACIDOPH & BULGAR 1 EACH PACKET PO SCH (18:30)
== END 2022-11-02 12:38 | disposition home or self-care (01) | DRG 269 ==
LOC: 2ORMAIN 06:45 → 3SCARD 14:38 → 2SICU 14:42 → 3SCARD 15:23
PROVIDERS: ADMIT Surgery; ATTEND Surgery
PROC: 04V03DZ Restriction of Abdominal Aorta with Intraluminal Device, Percutaneous Approach (ICD-10-PCS; principal; 2022-11-01 09:00)
DX: I71.43 Infrarenal abdominal aortic aneurysm, without rupture (principal); J44.9 Chronic obstructive pulmonary disease, unspecified; I10 Essential (primary) hypertension; G47.33 Obstructive sleep apnea (adult) (pediatric); R32 Unspecified urinary incontinence; N32.0 Bladder-neck obstruction; G89.29 Other chronic pain; M54.9 Dorsalgia, unspecified; Z79.899 Other long term (current) drug therapy; G62.9 Polyneuropathy, unspecified; E78.5 Hyperlipidemia, unspecified; Z86.16 Personal history of COVID-19; Z87.891 Personal history of nicotine dependence; Z87.01 Personal history of pneumonia (recurrent); Z88.5 Allergy status to narcotic agent; Z91.011 Allergy to milk products; Z88.8 Allergy status to other drugs, medicaments and biological substances
CPT/HCPCS: 34705; 80048; 82565; 85025; 86850; 86900; 86901; 94640

== ENCOUNTER 2024-03-04 11:11 | Emergency (ER) | payer OTHER ==
[2024-03-04] MEDS: hydrALAZINE HCL 20 MG/ML 1 ML VIAL IVP STA (12:04)
[2024-03-04] MEDS: ENALAPRILAT 1.25 MG/ML 1 ML VIAL IVP STA (12:06)
[2024-03-04 12:41] LABS: Basophils % (A) 0 %; Eosinophils # (A) 0.1 k/uL (0-0.7); Eosinophils % (A) 1 %; HCT 44.8 % (39.0-53.0); HGB 14.9 gm/dL (13.0-17.5); Lymphocytes # (A) 1.6 k/uL (1.0-4.8); Lymphocytes % (A) 19 %; MCH 34.2 pg (25.0-35.0); MCHC 33.3 g/dL (31.0-37.0); MCV 102.9 fL (80.0-100.0); Macrocytosis Slight; Mean Platelet Volume 7.5; Monocytes # (A) 0.5 k/uL (0-1.0); Monocytes % (A) 6 %; Neutrophils # (A) 5.9 k/uL (1.3-7.7); Neutrophils % (A) 71 %; Platelet Count 246 k/uL (150-450); RBC 4.35 m/uL (4.30-5.90); RDW 12.8 % (11.5-15.5); WBC 8.3 k/uL (3.8-10.6)
[2024-03-04 12:53] LABS: ALT 25 U/L (4-49); AST 40 U/L (17-59); African American GFR (CKD) >90 (>60 ml/min/1.73 sqM); Alkaline Phosphatase 95 U/L (38-126); Anion Gap 5 mmol/L; Blood Urea Nitrogen 12 mg/dL (9-20); Calcium 9.1 mg/dL (8.4-10.2); Carbon Dioxide 32 mmol/L (22-30); Chloride 94 mmol/L (98-107); Glucose 101 mg/dL (74-99); Non-African American GFR(CKD) 89 (>60 ml/min/1.73 sqM); Potassium 4.3 mmol/L (3.5-5.1); Sodium 131 mmol/L (137-145); Total Bilirubin 0.6 mg/dL (0.2-1.3); Total Protein 6.6 g/dL (6.3-8.2)
[2024-03-04 12:54] VITALS: PULSE 62
--- NOTE | 2024-03-04 12:59 | ED ---
General Adult HPI - General Chief complaint: Recheck/Abnormal Lab/Rx Stated complaint: Hypertension Time Seen by Provider: 03/04/24 11:22 Source: patient, RN notes reviewed Mode of arrival: wheelchair Limitations: no limitations - History of Present Illness Initial comments: 74-year-old male presents emergency department from PCPs office for hypertension . Patient states that they have been monitoring his blood pressure in which is keeping logs and was elevated and they advised him to come to emergency department denies chest pain shortness of breath headache dizziness he states he is on only on metoprolol. Patient denies fever chills cough colic symptoms no leg swelling no leg pain. - Related Data Home Medications Medication Instructions Recorded Confirmed Albuterol Inhaler [Ventolin Hfa 1 - 2 puff INHALATION Q6H PRN 10/30/22 06/11/23 Inhaler] Calcium Carbonate [Calcium] 1,200 mg PO DAILY 10/30/22 06/11/23 Ensure 1 can PO TID-W/MEALS 10/30/22 06/11/23 Hydrocodone/Acetaminophen 1 tab PO Q4HR PRN 10/30/22 06/11/23 [Hydrocodone/Acetaminophen 10-325] Lactobacillus Acidophilus 2 each PO PC-SUPPER 10/30/22 06/11/23 [Acidophilus Probiotic] Mesalamine 1.2 gm PO DAILY 10/30/22 06/11/23 Metoprolol Tartrate [Lopressor] 25 mg PO BID 10/30/22 06/11/23 Oxybutynin Chloride 5 mg PO BID 10/30/22 06/11/23 Pregabalin [Lyrica] 50 mg PO BID 10/30/22 06/11/23 Tiotropium 2.5 Mcg/Puff [Spiriva 2 puff INHALATION DAILY 10/30/22 06/11/23 Respimat 2.5 Mcg] Zinc Gluconate [Zinc] 50 mg PO DAILY 10/30/22 06/11/23 Cholecalciferol (Vitamin D3) 1,250 mcg PO DAILY 06/11/23 06/11/23 [Vitamin D3] Previous Rx's Medication Instructions Recorded lisinopriL [Prinivil] 10 mg PO DAILY #30 tab 03/04/24 Allergies Allergy/AdvReac Type Severity Reaction Status Date / Time gabapentin Allergy Unknown Unknown Verified 03/04/24 11:15 lactose Allergy Unknown Nausea & Verified 03/04/24 11:15 Vomiting & Diarrhea milk Allergy Nausea & Verified 03/04/24 11:15 Vomiting & Diarrhea morphine AdvReac Hx of Verified 03/04/24 11:15 addiction Review of Systems ROS Statement: Those systems with pertinent positive or pertinent negative responses have been documented in the HPI. ROS Other: All systems not noted in ROS Statement are negative. Past Medical History Past Medical History: Cancer, COPD, Hyperlipidemia, Hypertension, Sleep Apnea/CPAP/BIPAP Additional Past Medical History / Comment(s): sleep apnea-no machine, skin cancer., hx covid 07/2022 with pneumonia & hospitalization., chronic back pain., AAA. History of Any Multi-Drug Resistant Organisms: None Reported Past Surgical History: Back Surgery Additional Past Surgical History / Comment(s): Spinal surgery x5 Past Anesthesia/Blood Transfusion Reactions: No Reported Reaction Past Psychological History: No Psychological Hx Reported Smoking Status: Former smoker Past Alcohol Use History: None Reported Past Drug Use History: None Reported - Past Family History Mother Family Medical History: No Reported History General Exam Limitations: no limitations General appearance: alert, in no apparent distress Head exam: Present: atraumatic, normocephalic, normal inspection Eye exam: Present: normal appearance, PERRL, EOMI. Absent: scleral icterus, conjunctival injection, periorbital swelling ENT exam: Present: normal exam, mucous membranes moist Neck exam: Present: normal inspection, full ROM. Absent: tenderness, meningismus, lymphadenopathy Respiratory exam: Present: normal lung sounds bilaterally. Absent: respiratory distress, wheezes, rales, rhonchi, stridor Cardiovascular Exam: Present: regular rate, normal rhythm, normal heart sounds. Absent: systolic murmur, diastolic murmur, rubs, gallop, clicks GI/Abdominal exam: Present: soft, normal bowel sounds. Absent: distended, tenderness, guarding, rebound, rigid Course Vital Signs 03/04/24 03/04/24 03/04/24 11:13 11:35 11:58 Temperature 97.4 F L 98.2 F Pulse Rate 77 65 63 Respiratory 16 17 18 Rate Blood Pressure 188/110 170/86 174/85 O2 Sat by Pulse 96 97 97 Oximetry 03/04/24 03/04/24 03/04/24 12:24 12:47 13:02 Temperature 98.1 F 97.6 F 97.9 F Pulse Rate 62 62 62 Respiratory 16 20 19 Rate Blood Pressure 166/85 150/83 149/87 O2 Sat by Pulse 96 95 95 Oximetry EKG Findings - EKG Comments: EKG Findings:: EKG performed 11: 29 sinus rhythm rate of 70 [place] 194 QRS 92 QT/QTc 391/411 - EKG Results: EKG: interpreted by LIS Medical Decision Making - Medical Decision Making Was pt. sent in by a medical professional or institution ([facility], ENSEMB[employer] MEMBER, urgent care, hospital, or detention...) When possible be specific @ -PCP Did you speak to anyone other than the patient for history (EMS, parent, family, police, friend...)? What history was obtained from this source @ -No Did you review nursing and triage notes (agree or disagree)? Why? @ -I reviewed and agree with nursing and triage notes Were old charts reviewed (outside hosp., previous admission, EMS record, old EKG, old radiological studies, urgent care reports/EKG's, detention records)? Report findings @ -No old charts were reviewed Differential Diagnosis (chest pain, altered mental status, abdominal pain women, abdominal pain men, vaginal bleeding, weakness, fever, dyspnea, syncope, headache, dizziness, GI bleed, back pain, seizure, CVA, palpatations, mental health, musculoskeletal)? @ -Differential Chest Pain: Stable Angina, Unstable Angina, STEMI, NSTEMI Aortic Dissection, Pneumothorax, Musculoskeletal, Esophageal Spasm GERD, Cholecystitis, Pancreatitis, Zoster, this is not meant to be an all-inclusive list. EKG interpreted by me (3pts min.). @ -As above X-rays interpreted by me (1pt min.). @ -None done CT interpreted by me (1pt min.). @ -None done U/S interpreted by me (1pt. min.). @ -None done What testing was considered but not performed or refused? (CT, X-rays, U/S, labs)? Why? @ -None What meds were considered but not given or refused? Why? @ -None Did you discuss the management of the patient with other professionals (professionals i.e. [facility], ENSEMBLE MEMBER, lab, RT, psych nurse, social science research assistant, field inspector, teacher, correctional officer, sample case porter)? Give summary @ -No Was smoking cessation discussed for >3mins.? @ -No Was critical care preformed (if so, how long)? @ -No Were there social determinants of health that impacted care today? How? (Homelessness, low income, unemployed, alcoholism, drug addiction, transportation, low edu. Level, literacy, decrease access to med. care, retirement, rehab)? @ -No Was there de-escalation of care discussed even if they declined (Discuss DNR or withdrawal of care, Hospice)? DNR status @ -No What co-morbidities impacted this encounter? (DM, HTN, Smoking, COPD, CAD, Cancer, CVA, ARF, Chemo, Hep., AIDS, mental health diagnosis, sleep apnea, morbid obesity)? @ -None Was patient admitted / discharged? Hospital course, mention meds given and route, prescriptions, significant lab abnormalities, going to OR and other pertinent info. @ -Discharge blood pressure is greatly improved he is asymptomatic laboratory studies unremarkable patient discharged on lisinopril. Undiagnosed new problem with uncertain prognosis? @ -No Drug Therapy requiring intensive monitoring for toxicity (Heparin, Nitro, Insulin, Cardizem)? @ -No Were any procedures done? @ -No Diagnosis/symptom? @ -Hypertension Acute, or Chronic, or Acute on Chronic? @ -Acute Uncomplicated (without systemic symptoms) or Complicated (systemic symptoms)? @ -Uncomplicated Side effects of treatment? @ -No Exacerbation, Progression, or Severe Exacerbation? @ -No Poses a threat to life or bodily function? How? (Chest pain, USA, CA, pneumonia, PE, COPD, DKA, ARF, appy, cholecystitis, CVA, Diverticulitis, Homicidal, Suicidal, threat to staff... and all critical care pts) @ -No - Lab Data Result diagrams: 03/04/24 11:52 03/04/24 11:52 Lab Results 03/04/24 03/04/24 Range/Units 11:52 11:52 WBC 8.3 (3.8-10.6) k/uL RBC 4.35 (4.30-5.90) m/uL Hgb 14.9 (13.0-17.5) gm/dL Hct 44.8 (39.0-53.0) % MCV 102.9 H (80.0-100.0) fL MCH 34.2 (25.0-35.0) pg MCHC 33.3 (31.0-37.0) g/dL RDW 12.8 (11.5-15.5) % Plt Count 246 (150-450) k/uL MPV 7.5 Neutrophils % 71 % Lymphocytes % 19 % Monocytes % 6 % Eosinophils % 1 % Basophils % 0 % Neutrophils # 5.9 (1.3-7.7) k/uL Lymphocytes # 1.6 (1.0-4.8) k/uL Monocytes # 0.5 (0-1.0) k/uL Eosinophils # 0.1 (0-0.7) k/uL Basophils # 0.0 (0-0.2) k/uL Macrocytosis Slight Sodium 131 L (137-145) mmol/L Potassium 4.3 (3.5-5.1) mmol/L Chloride 94 L (98-107) mmol/L Carbon Dioxide 32 H (22-30) mmol/L Anion Gap 5 mmol/L BUN 12 (9-20) mg/dL Creatinine 0.75 (0.66-1.25) mg/dL Est GFR (CKD-EPI)AfAm >90 (>60 ml/min/1.73 sqM) Est GFR (CKD-EPI)NonAf 89 (>60 ml/min/1.73 sqM) Glucose 101 H (74-99) mg/dL Calcium 9.1 (8.4-10.2) mg/dL Total Bilirubin 0.6 (0.2-1.3) mg/dL AST 40 (17-59) U/L ALT 25 (4-49) U/L Alkaline Phosphatase 95 (38-126) U/L Total Protein 6.6 (6.3-8.2) g/dL Albumin 4.0 (3.5-5.0) g/dL Disposition Clinical Impression: Hypertension Disposition: HOME SELF-CARE Condition: Stable Instructions (If sedation given, give patient instructions): Hypertension (ED) Additional Instructions: Please return to the Emergency Department if symptoms worsen or any other concerns. Prescriptions: lisinopriL [Prinivil] 10 mg PO DAILY #30 tab Is patient prescribed a controlled substance at d/c from ED?: No Referrals: [facility] [Primary Care Provider] - 1-2 days Time of Disposition: 13:42
[2024-03-04 13:39] VITALS: BP 149/87; RESP 19; TEMP 97.9
== END 2024-03-04 13:30 | disposition home or self-care (01) ==
LOC: EC 11:11
DX: I10 Essential (primary) hypertension (principal); Z87.891 Personal history of nicotine dependence; Z88.5 Allergy status to narcotic agent; Z91.011 Allergy to milk products; Z91.018 Allergy to other foods; Z88.8 Allergy status to other drugs, medicaments and biological substances; Z79.899 Other long term (current) drug therapy
CPT/HCPCS: 36415; 80053; 85025; 93005; 96374; 99284